=== PATIENT | female | born 1960 | race Caucasian/White ===

== ENCOUNTER 2017-06-24 12:46 | Outpatient (CLI) | payer MEDICARE, OTHER ==
--- NOTE | 2017-06-24 15:59 | MRI ---
MRI CERVICAL SPINE: HISTORY: Radiculopathy. FINDINGS: Noncontrast-enhanced MRI images cervical spine were performed. The patient wished to discontinue the exam. Unfortunately, T2 axial images could not be obtained as the patient refused further imaging. The images are markedly degraded due to the susceptibility artifact from the anterior cervical diskec [place] and fusion plates and screws. There is fusion of the C4, C5, C6, and C7 levels. Due to the artifact, I cannot exclude the possibility of significant central and neural foraminal felicity rowing. It would be of use to have the patient return for additional T2 axial images as well as repe at sagittal images. If the patient cannot have additional MRI images, then consider CT myelography o f the cervical spine. There may be a broad-based disk bulge at C3-4 compressing the thecal sac centrally above the cervical spine fusion level. IMPRESSION: Limited exam as the patient could not tolerate further imaging. There does appear to be a disk-osteo phyte complex centrally at C3-4 compressing the thecal sac. Repeat exam with T2 weighted axial recom mended. POS: MARLEN
== END 2017-06-24 12:47 | disposition home or self-care (01) ==
LOC: SCSMRI 12:46
PROVIDERS: ATTEND Nurse Practitioner Family
DX: M50.120 Mid-cervical disc disorder, unspecified level (principal); M25.78 Osteophyte, vertebrae; M48.062 Spinal stenosis, lumbar region with neurogenic claudication
CPT/HCPCS: 72141

== ENCOUNTER 2017-07-10 08:59 | Outpatient (CLI) | payer MEDICARE, OTHER ==
[2017-07-10] MEDS ORDERED: Gadobenate Dimeglumine 529 MG/1 ML (20ML VIAL) ONE (09:00)
--- NOTE | 2017-07-10 15:43 | MRI ---
MRI OF THE CERVICAL SPINE WITHOUT CONTRAST: 07/10/17 Multiplanar and multisequence imaging of the cervical spine obtained. INDICATIONS: Cervical pain. The exam is performed in followup to the MRI cervical spine 06/24/17. Patient was unable to complete t he exam at that time. FINDINGS: Prior anterior fusion procedure noted. Anterior plate and screws appear to transfix C4, C5, C6 and C7 . Metallic artifact degrades the exam. Vertebral body signal is normal with no evidence of edema. Disc protrusion at C3-4 is present with associated spondylosis. This compresses the cord and produces flattening of the anterior cord. Bilateral foraminal encroachment due to facet and uncinate hypertro phy at this level. Fusion changes at C4, C5, C6 and C7. Effacement anterior subarachnoid space throughout these levels. No cord impingement seen. Cord signal appears normal. IMPRESSION: Prominent disc protrusion and spondylosis at C3-4 impinges on the cord. Foraminal encroachment at thi s level is also present. POS: MARLEN
--- NOTE | 2017-07-10 15:59 | MRI ---
MRI LUMBAR SPINE WITH AND WITHOUT CONTRAST 07/10/17 HISTORY: Spinal stenosis, back pain radiating down the right leg and hip times many years. COMPARISON: None. TECHNIQUE: MRI Lumbar spine is performed with and without intravenous gadolinium administration. Multisequential , multiplanar imaging is performed. FINDINGS: Appropriate T1 marrow signal intensity lumbar vertebrae. Lumbar spine vertebral body height is mainta ined. There is no fracture. No significant STIR hyperintensity to suggest vertebral body edema or lig amentous injury. No abnormal enhancement of the vertebral bodies. There is right facet hypertrophy at L5-S1 with evidence of periarticular enhancement. A small amount of enhancement is also along the ri ght aspect of the L5-S1 disc. There is intrinsic T1 hypointensity with associated T2 and STIR hyperin tensity as well as enhancement suggesting type I Modic change along the right aspect of the L5-S1 dis c space. There is intrinsic T2 and STIR hyperintensity along with enhancement along the right anterio r lateral aspect of the disc suggesting a small annular tear. There may be minimal associated disc ma terial along the right anterolateral aspect of the L5-S1 disc space. Conus medullaris terminates at the inferior aspect of T12. On the postcontrast images, there is no ab normal enhancement within the thecal sac including the cauda equina and conus medullaris. T12-L1: Moderate loss of disc space height. No high grade central canal stenosis. Neural foramina are patent. L1-L2: Adequate disc hydration. No significant central canal stenosis. Neural foramina are patent. L2-L3: Adequate disc hydration. No significant central canal stenosis. Mild ligamentum flavum thicken ing and facet hypertrophy. Neural foramina are patent. L3-L4: Desiccation with mild loss of disc space height. Generalized disc bulge with a central/right p aracentral component. There is facet hypertrophy. Overall, there is mild to moderate central canal st enosis. Right neural foramen is patent. Mild left foraminal narrowing. L4-L5: Desiccation with mild loss of disc space height. There is a generalized disc bulge. Ligamentum flavum thickening and facet hypertrophy are present. Mild central canal stenosis. Mild right and lef t foraminal narrowing. L5-S1: Desiccation with mild loss of disc space height. No significant posterior disc abnormality. N o significant central canal stenosis. There is right facet hypertrophy. There is mild right foraminal narrowing due to disc material and aforementioned facet hypertrophy. Left neural foramen is patent. IMPRESSION: 1. Degenerative changes of the lumbar spine as above. 2. No pathologic enhancement. 3. Mild degenerative change of the right L5-S1 facet joint space as well as the right aspect of the L5-S1 disc space. There is evidence of type I Modic change with associated enhancement of the end plates as well as of the right L5-S1 facet. There is also suggestion of an annular tear along the ri ght anterior aspect of the disc at L5-S1. POS: DOMINIQUE
== END 2017-07-10 09:00 | disposition home or self-care (01) ==
LOC: SCSMRI 08:59
PROVIDERS: ATTEND Nurse Practitioner Family
DX: M50.120 Mid-cervical disc disorder, unspecified level (principal); M48.062 Spinal stenosis, lumbar region with neurogenic claudication; M47.896 Other spondylosis, lumbar region; M47.897 Other spondylosis, lumbosacral region; M47.26 Other spondylosis with radiculopathy, lumbar region; M99.81 Other biomechanical lesions of cervical region
CPT/HCPCS: 72156; 72158; A9579

== ENCOUNTER 2018-05-14 13:44 | Outpatient (CLI) | payer MEDICARE, OTHER ==
--- NOTE | 2018-05-14 18:10 | MRI ---
MRI CERVICAL SPINE WITHOUT CONTRAST: 05/14/18 COMPARISON: 06/24/17, 07/10/17. HISTORY: Cervical spinal stenosis. Previous cervical fusion. Chronic neck pain. TECHNIQUE: MRI of the cervical spine is performed without intravenous gadolinium administration. Multisequential , multiplanar imaging is performed. FINDINGS: Redemonstration of cervical fusion changes from C4 through C7 with associated metallic susceptibility artifact. Stable straightening of the normal cervical lordosis. There is persistent anterolisthesis of C3 upon C4 (2 mm). Vertebral body height is maintained. There is no evidence of fracture. Grossly, normal T1 marrow signal intensity of the cervical spine. No significant STIR hyperintensity to sugge st vertebral body edema or ligamentous injury. There is mucosal disease involving the visualized paranasal sinuses. The visualized brain parenchyma, cervicomedullary junction, cervical cord, and the upper thoracic cor d have a normal size and signal intensity. C2-C3: No high grade central canal stenosis or high grade foraminal narrowing. C3-C4: Broad based disc osteophyte complex abuts the thecal sac and effaces the ventral subarachnoid space. There is mass effect and deformity of the cervical cord, without T2 hyperintensity in the cord . There is moderate central canal stenosis. Uncovertebral hypertrophy results in moderate right and m ild to moderate left foraminal narrowing. The overall degree of central canal stenosis at C3-C4 has n ot changed. C4-C5: Broad based osteophyte ridge with mild central canal stenosis. Neural foramina are patent. C5-C6: There is a central disc osteophyte complex that abuts the thecal sac. Ventral subarachnoid spa ce is effaced. There is mild central canal stenosis, unchanged from the previous examination. Mild bi lateral foraminal narrowing. C6-C7: Broad based disc osteophyte complex abuts the thecal sac. Mild central canal stenosis. Neural foramina are patent. C7-T1: No high grade central canal stenosis or high grade foraminal narrowing. IMPRESSION: 1. Stable postsurgical changes of the cervical spine. Stable fusion. 2. Stable grade I anterolisthesis of C3 upon C4. 3. Stable central canal stenosis at C3-C4 without T2 signal abnormality. The greatest degree of central canal stenosis is at C3-C4. 4. Additional central canal stenosis and neural foraminal narrowing as detailed above. POS: PPP
== END 2018-05-14 13:45 | disposition home or self-care (01) ==
LOC: SCSMRI 13:44
PROVIDERS: ATTEND Anesthesiology Pain Medicine
DX: M48.02 Spinal stenosis, cervical region (principal); M43.12 Spondylolisthesis, cervical region; Z98.890 Other specified postprocedural states; Z98.1 Arthrodesis status
CPT/HCPCS: 72141

== ENCOUNTER 2018-05-15 09:44 | Outpatient (CLI) | payer MEDICARE, OTHER ==
--- NOTE | 2018-05-15 11:27 | RAD ---
9 VIEW CERVICAL SPINE: Date: 05/15/18 HISTORY: Chronic neck pain. Previous cervical fusion. COMPARISON: None. FINDINGS: Open-mouth and base of skull views limit evaluation of the odontoid process, as well as the lateral m asses of C1 and C2. Bilateral oblique views do not demonstrate any high grade foraminal narrowing. AP projection demonstrates appropriate alignment. There is no prevertebral soft tissue swelling. Predental space is normal. There is a cervical fusion plate with transvertebral body screws at C4, C5, C6, and C7. No perihardwa re lucency. Fusion from C4-C5 through C6-C7 disc spaces. Mild straightening in the neutral position. No abnormal alignment and motion upon extension and flexion. IMPRESSION: Uncomplicated cervical fusion hardware. POS: MARLEN
== END 2018-05-15 09:45 | disposition home or self-care (01) ==
LOC: SCSRAD 09:44
PROVIDERS: ATTEND Anesthesiology Pain Medicine
DX: M48.02 Spinal stenosis, cervical region (principal); Z98.1 Arthrodesis status
CPT/HCPCS: 72052

== ENCOUNTER 2018-10-27 08:51 | Outpatient (CLI) | payer MEDICARE, OTHER ==
--- NOTE | 2018-10-27 09:09 | RAD ---
XR Chest Pa Lat STANDARD HISTORY: Chest wall pain COMPARISON: None. FINDINGS: Heart size within normal limits. There are postop sternotomy changes. The lungs are clear o f infiltrates. Scoliotic changes spine is noted the postoperative changes of the cervical region are seen. IMPRESSION: No active intrathoracic disease.
--- NOTE | 2018-10-27 11:18 | RAD ---
LEFT RIBS THREE VIEWS: HISTORY: Left chest wall pain. FINDINGS: The bones appear slightly demineralized. I do not see any lytic or blastic bone lesions. I do not s ee any evidence of rib fracture. Scoliotic change of the spine is noted. IMPRESSION: No evidence of rib fracture. POS: OFF
== END 2018-10-27 08:52 | disposition home or self-care (01) ==
LOC: RAD 08:51
PROVIDERS: ATTEND Nurse Practitioner Family
DX: R07.89 Other chest pain (principal); Z51.81 Encounter for therapeutic drug level monitoring; Z79.891 Long term (current) use of opiate analgesic
CPT/HCPCS: 71046; 80307; G0483

== ENCOUNTER 2024-12-08 12:12 | Outpatient (CLI) | payer MEDICARE ==
[2024-12-08 13:43] LABS: #Basophils 0.06 10x3/uL (0.0-0.2); #Eosinophils 0.12 10x3/uL (0.0-0.7); #Monocytes 0.56 10x3/uL (0.11-0.59); #Neutrophils 5.06 10x3/uL (1.40-6.50); %Basophils 0.9 % (0.0-1.0); %Eosinophils 1.8 % (0.0-10.0); %Lymphocytes 12.0 % (21.0-51.0); %Monocytes 8.4 % (0.0-10.0); %Neutrophils 75.6 % (42.0-75.0); Hematocrit 32.3 % (36.0-47.0); Hemoglobin 9.7 g/dL (12.0-16.0); Mean Corpuscular Hemoglobin 27.6 pg (27.0-31.0); Mean Corpuscular Volume 91.8 fL (78.0-98.0); Platelet Count 250 10x3/uL (130-400); Red Blood Cell (RBC) Count 3.52 mill/uL (4.20-5.40); White Blood Cell (WBC) Count 6.69 10x3/uL (4.8-10.8)
[2024-12-08 13:58] LABS: PTT 29.8 sec (22.9-36.1)
[2024-12-08 13:59] LABS: INR-International Normal Ratio 1.3; Prothrombin Time 16.1 sec (12.0-14.7)
[2024-12-08 14:08] LABS: Anion Gap 18 mmol/L (10-20); BUN (Urea Nitrogen) 40 mg/dL (9.8-20.1); Calc. Creatinine Clearance 0 mL/min (70-130); Calcium 9.2 mg/dL (7.8-10.44); Carbon Dioxide 24 mmol/L (23-31); Chloride 105 mmol/L (98-107); Glucose 134 mg/dL (80-115); Potassium 3.8 mmol/L (3.5-5.1); Sodium 143 mmol/L (136-145)
== END 2024-12-08 12:13 | disposition home or self-care (01) ==
LOC: LABBT 12:12
PROVIDERS: ATTEND Surgery
DX: Z01.818 Encounter for other preprocedural examination (principal); N18.6 End stage renal disease
CPT/HCPCS: 71046; 80048; 85025; 85610; 85730; 93005; 93010